=== PATIENT | male | born 1960 | race African-American/Black ===

== ENCOUNTER 2016-07-06 05:22 | Inpatient (IN) ==
[2016-07-06] MEDS ORDERED: ONDANSETRON 4 MG/2 ML VIAL IV PRN (05:38)
[2016-07-06] MEDS ORDERED: ASPIRIN CHEW 81 MG TABLET PO STA (05:38)
[2016-07-06] MEDS ORDERED: ASPIRIN 325 MG TABLET ONE (05:38)
[2016-07-06] MEDS ORDERED: TICAGRELOR 90 MG TABLET PO STA (05:41)
[2016-07-06] MEDS ORDERED: ENOXAPARIN 100 MG/ML SYRINGE SUBCUT STA (05:42)
[2016-07-06] MEDS ORDERED: TICAGRELOR 90 MG TABLET ONE (05:43)
[2016-07-06] MEDS ORDERED: ENOXAPARIN 100 MG/ML SYRINGE SUBCUT ONE (05:43)
[2016-07-06] MEDS ORDERED: METOPROLOL TARTRATE 5 MG/5 ML VIAL IV ONE (05:44)
[2016-07-06] MEDS: METOPROLOL TARTRATE 5 MG/5 ML VIAL IV SCH (05:46)
--- NOTE | 2016-07-06 05:46 | Emergency Department Note ---
Arrival - Arrival Chief Complaint: Chest Pain Stated Complaint: severe chest pain ED Nursing Triage Note: C/C substernal chest pain, non radiating, makes him short of breath and diaphoretic. Heaviness 8/10 pain. started yesterday 07/05 around 15:00 Mode of Arrival: Ambulatory - History of Present Illness HPI Narrative: This patient is a 55-year-old man with a history of tobacco use and a remote history of a bleeding peptic ulcer that was treated endoscopically and with acid suppression therapy who has not had issues of the ulcer since 2005. He presents to the ER with about 12 hours of worsening pressure-like substernal chest pain that he initially thought was indigestion. This is associated with diaphoresis and nausea and he take an aspirin last night around midnight but it worsened so he came in this morning. His initial EKG showed ST elevations in the anteroseptal leads with reciprocal changes in the inferior leads. The cath lab manager was activated and I discussed his EKG with Dr. Crocker who gave further recommendations regarding specific anticoagulation and the patient was treated with 180 mg of Brilinta by mouth as well as a 325mg aspirin and 100 mg of subcutaneous Lovenox. He had atrial fibrillation as well as on his EKG and is given 5 mg of IV metoprolol. Allergies/Adverse Reactions: Allergies Allergy/AdvReac Type Severity Reaction Status Date / Time No Known Allergies Allergy Unverified 07/06/16 05:29 Home Medications: Home Medications Medication Instructions Recorded Confirmed Type No Known Home Medications [No 07/06/16 07/06/16 History Known Home Medications] Review of System - Review of System Constitutional: Present: as per HPI Eyes: Present: as per HPI Head/Ears/Nose/Throat: Present: see HPI Respiratory: Present: as per HPI Cardiovascular: Present: as per HPI Gastrointestinal: Present: as per HPI Genitourinary male: Present: as per HPI Musculoskeletal: Present: as per HPI Skin: Present: as per HPI Neurological: Present: as per HPI Psychiatric: Present: as per HPI Endocrine: Present: as per HPI Hematological/Lymphatic: Present: as per HPI Allergic/Immunologic: Present: as per HPI Medical,Surgical,& Family Hx - Social History Smoking Status: Current every day smoker Frequency of Alcohol Use: None Type of Drug Use: None Exam Vital Signs: Vital Signs Temperature 97.3 F L 12/29/16 05:25 Pulse Rate 117 H 07/06/16 05:25 Respiratory Rate 18 07/06/16 05:25 Blood Pressure 137/91 07/06/16 05:25 O2 Sat by Pulse Oximetry 97 07/06/16 05:25 - General General appearance: alert, in no apparent distress - Head Head exam: Present: atraumatic, normocephalic - Eye Eye exam: Present: normal appearance, PERRL, EOMI. Absent: scleral icterus - ENT ENT exam: Present: normal exam - Neck Neck exam: Present: normal inspection, full ROM - Chest Chest inspection: Present: normal inspection, symmetric chest wall rise. Absent : tenderness - Respiratory Respiratory exam: Present: normal lung sounds bilaterally. Absent: accessory muscle use, prolonged expiratory phase - Cardiovascular Cardiovascular exam: Present: tachycardia, irregular rhythm. Absent: murmur - Abdominal Exam Abdominal exam: Present: soft, normal bowel sounds. Absent: distention, tenderness, guarding, rebound - Rectal Exam Rectal exam: Present: deferred - exam: Present: normal inspection - Extremities Exam Extremities exam: Present: normal inspection - Back Exam Back exam: Present: normal inspection, full ROM - Neurological Exam Neurological exam: Present: alert, oriented X3 - Psychiatric Psychiatric exam: Present: normal affect, normal mood - Skin Skin exam: Present: warm, dry Course Course Narrative: This patient was evaluated clinically in the cath lab manager was activated. I discussed his presentation with Dr. Crocker. He is prepared for the cath lab manager. Disposition Clinical Impression: Chest pain, ST elevation myocardial infarction (STEMI) Case discussed with: patient Disposition: Still a Patient Condition: Guarded Instructions: Coronary Artery Disease (ED) Time of Disposition: 05:49
[2016-07-06 05:51] LABS: Basophils # 0.1 10*3/uL (0.0-0.2); Basophils % 0.4 % (0.0-0.8); Eosinophils # 0.1 10*3/uL (0.0-0.87); Eosinophils % 0.7 % (0.00-10.9); Hematocrit 39.5 VOL% (42.0-52.0); Immature Granulocytes % 0.4 %; Immature Granulocytes Absolute 0.05 #; Lymphocytes # 3.3 10*3/uL (1.4-4.0); Lymphocytes % 23.4 % (21.2-54.2); Mean Corpuscular HGB Conc 35.4 GM/DL (32-36); Mean Corpuscular Hemoglobin 28 PG (27-34); Mean Corpuscular Volume 77.9 FL (87-102); Mean Platelet Volume 10.4 FL (9.6-12.0); Monocytes # 1.2 10*3/uL (0.11-0.8); Monocytes % 8.8 % (1.7-12.7); Neutrophils # 9.4 10*3/uL (1.4-7.4); Neutrophils % 66.3 % (38.7-73.9); Platelet Count 331 10*3/uL (130-400); Red Blood Count 5.07 10*6/uL (3.8-5.5); Red Cell Distribution Width 13.6 % (9.3-17.3); White Blood Count 14.1 10*3/uL (4.5-13.71)
[2016-07-06 06:00] LABS: INR 1.1; PT Patient Result 11.7 SECS
--- NOTE | 2016-07-06 06:09 | History and Physical Update ---
Sedation H&P Update - History and Physical H&P was reviewed, the patient examined and there: are no changes in the patients condition since last H&P was completed. - Dictation Physical: refer to H&P completed by admitting physician - Physical Exam Mental Status: alert and oriented Heart: regular rate and rhythm Lung: clear to auscultation Abdomen: within normal limits Vitals: within normal limits - Sedation Plan for Sedation: moderate Patient Consent: Procedure disscussed with patient and patinet has consented., Risks and benefits were discussed with patient,including infection,, bleeding, injury to surrounding structures, seizure, temporary nerve, Patient understands and accepts potential risks/benefits and agrees to, proceed. ASA Class: IV Airway Assessment: Class II: Soft palate, uvula, fauces visible
--- NOTE | 2016-07-06 06:10 | Cardiology History & Physical ---
History of Present Illness Chief complaint: Chest pain History of present illness: Mr. Cuba is a 55 year old male with stuttering substernal chest pain that felt like gas that started yesterday at 1500 hrs. been going on and off today it became constant he came to the emergency room was evaluated by Dr. Huntley to look found to have ST elevation in V3 through V6 with reciprocal ST depression. He was in sinus rhythm with atrial bigeminy. The Research Executive was activated and I was called. The patient received Lovenox and Brilinta and shortly after receiving his Lovenox his pain improved Home Medications Medication Instructions Recorded Confirmed Type No Known Home Medications [No 07/06/16 07/06/16 History Known Home Medications] Allergies Allergy/AdvReac Type Severity Reaction Status Date / Time No Known Allergies Allergy Unverified 07/06/16 05:29 Medical,Surgical,& Family Hx - Social History Smoking Status: Current every day smoker Frequency of Alcohol Use: None Type of Drug Use: None Cardiology Physical Exam - Constitutional Vitals: Vital Signs Temp Pulse Resp BP Pulse Ox 97.3 F L 117 H 18 137/91 97 07/06/16 05:25 07/06/16 05:25 07/06/16 05:25 07/06/16 05:25 07/06/16 05:25 Intake and Output 07/05/16 07/05/16 07/06/16 15:59 23:59 07:59 Other: Weight 98.883 kg Patient Weight 07/06/16 23:59 Weight 98.883 kg Result/EKG - Labs CBC & BMP: 07/06/16 05:46 Labs: Laboratory Results - last 24 hr 07/06/16 07/06/16 05:46 05:46 WBC 14.1 H RBC 5.07 Hgb 14.0 Hct 39.5 L MCV 77.9 L MCH 28 MCHC 35.4 RDW 13.6 Plt Count 331 MPV 10.4 Neut % (Auto) 66.3 Lymph % (Auto) 23.4 [place] % (Auto) 8.8 Eos % (Auto) 0.7 Baso % (Auto) 0.4 Neut # (Auto) 9.4 H Lymph # (Auto) 3.3 [place] # (Auto) 1.2 H Eos # (Auto) 0.1 Baso # (Auto) 0.1 Immature Gran % 0.4 Nucleated RBC % 0.0 Immature Gran # 0.05 Nucleated RBCs # 0.00 INR 1.1 PT Patient/Control Mix 11.7
[2016-07-06] MEDS ORDERED: HEPARIN/NACL 0.9% 2 UNITS/ML 500 ML IV ONE ×2 (06:19→07:03)
[2016-07-06 06:20] LABS: Albumin 3.8 G/DL (3.4-5.0); Bilirubin,Total 0.6 MG/DL (0.2-1.0); Calcium 8.7 MG/DL (8.5-10.1); Magnesium 1.9 MG/DL (1.8-2.4); Osmolality,Calculated 277.5 MOS/KG (273-304); Potassium 3.6 MMOL/L (3.5-5.1)
[2016-07-06 06:24] LABS: Troponin I Only 9.3 NG/ML (0.00-0.045)
[2016-07-06 06:50] LABS: Apearance,Urine CLEAR (Clear); Bilirubin,Urine Negative (Negative); Blood, Urine Negative (Negative); Glucose,Urine (UA) Negative (Negative); Hyaline Casts,Urine 3 /LPF (0-3); Ketones,Urine Negative (Negative); Mucus,Urine Occasional /LPF (Occasional); Nitrite,Urine Negative (Negative); Protein,Urine 30 MG/DL; RBC,Urine 2 /HPF (0-4); Urine Color Yellow (Yellow); Urine Urobilinogen < 2.0 EU/DL (0.2-1.0); WBC,Urine <1 /HPF (0-6)
[2016-07-06] MEDS ORDERED: ZALEPLON 5 MG CAPSULE PO PRN (06:51)
[2016-07-06] MEDS ORDERED: MORPHINE 2 MG/1 ML SYRINGE IV PRN (06:51)
[2016-07-06] MEDS ORDERED: NITROGLYCERIN SL 0.4 MG TABLET SL PRN (06:51)
[2016-07-06] MEDS ORDERED: fentaNYL 100 MCG/2 ML VIAL ONE (07:00)
[2016-07-06] MEDS ORDERED: LIDOCAINE 1% 20 ML VIAL ONE (07:00)
[2016-07-06] MEDS ORDERED: MIDAZOLAM 2 MG/2 ML VIAL ONE (07:00)
[2016-07-06] MEDS ORDERED: SODIUM CHLORIDE 0.45% 1,000 ML IV SCH (07:00)
--- NOTE | 2016-07-06 07:05 | Cardiac Catheterization ---
Date of Procedure:: 07/06/16 Pre-op Diagnosis: ST elevation myocardial infarction Post-op diagnosis: other (ST elevation myocardial infarction secondary to 100% thrombotic occlusion of the proximal LAD with WENDY 0 flow and ischemic cardiomyopathy, decompensated) Procedure: Procedures: 1. Left heart catheterization resting hemodynamics 2 left ventriculography 3 selective left and right coronary angiography 4 percutaneous coronary mention of the proximal and mid left anterior descending artery with a 3.5 x 28 mm Xience Alpine drug-eluting stent postdilated to 14 carissa with a 3.5 x 20 mm NC Quantum balloon (100% occluded vessel with WENDY 0 flow pre-PCI with 0% residual stented segment and WENDY II flow in the very distal LAD post PCI) After consent was taken from the patient. Taken to the catheterization lab for emergent left heart catheterization via the femoral artery. Time out was taken and recorded. 1% lidocaine was infiltrated in the skin and subcutaneous tissue overlying the right femoral artery. Modified Seldinger technique and an 18- gauge Cook needle was used for access to the right femoral artery. An 0.35 J- wire was advanced through the needle into the central aorta under fluoroscopy. A small skin was made and a 6 Tajik sheath was placed over the wire. The sheath was aspirated and flushed. A JR4 catheter was advanced over the wire into the central aorta. The right coronary was selectively engaged and single view of the right coronary artery were obtained. A EBU 3.5 guide was advanced over the wires in the left main coronary artery was selectively engaged. Multiple orthogonal views of the left system were obtained. The lathe setup operator reviewed the films. The patient had received 180 mg of Brilinta milligrams milligrams subcu of Lovenox in the emergency room. Only a very small nipple in the ostium of the LAD was seen but a 180 cm pro-water wire was advanced with significant amount of difficulty into the distal LAD. At this time a 2.5 x 12 mm Latham balloon was used to [place] and then balloon the long heavily diseased segment. WENDY II flow was restored to the vessel the very distal segments of the vessel had poor flow. Balloon was removed and a 3.5 x 28 mm Xience Alpine drug-eluting stent was deployed. There was excellent angiographic result of the very distal portion of the LAD continued to have poor flow. Patient's blood pressure was 106/58 was felt that he probably would not tolerate additional vasodilators given down the vessel it appears as though from shot shot the flow was improving. The wire was removed orthogonal views were obtained. At this time the EBU was exchanged over the wire the sheath was aspirated and flushed angled pigtail catheter was taken across the aortic valve any centimeter grams from the HOBBS projection 10 cc a second a total of 30 cc pullback measurements were performed. The sheath was aspirated and flushed and a right femoral and iliac angiography was performed. The access site was amenable for closure and the area was reprepped with ChloraPrep and draped with sterile towels. The Angio-Seal closure device was used in standard technique. There was no hematoma and distal pulses were good. Total IV conscious sedation to mill grams of Versed 25 mg of fentanyl Total x-ray exposure as per the x-ray log. Fluoroscopy time 6 minutes total diagnostic fluoroscopy dose 2190 mGy Total contrast used 212 cc of Visipaque FINDINGS: LV:110/10 LVEDP: 28 Ao: 106/80 EF: 20% with severe mid distal anterior apical and distal inferior hypokinesis LM: There is mild plaquing approximately 20% in the distal LM LAD: This is a very large very tortuous vessel at the beginning of the procedure there was thrombotic occlusion at the ostium with only a small nipple there it was wired once was wired this resolved and opened up to show a long mildly calcified 100% proximal to mid LAD occlusion. Once this was ballooned it was felt to be that it was long and complex. LCx: Very tortuous vessels nondominant with no high-grade stenosis. RCA: This is a very tortuous vessel is very large and free of any significant disease there is some mild disease the very distal PDA. Due to hampton to open the culprit vessel only a single view was obtained. It was felt to be adequate. RFA/LUIS ARMANDO: There is minimal disease in the right femoral iliac arteries. Assessment: 1. ST elevation myocardial infarction secondary to 100% thrombotic occlusion of the proximal and mid left anterior descending artery with ruptured plaque and long high-grade epicardial stenosis 2. Ischemic cardiomyopathy EF of 20% with regional wall motion are as described above and LVEDP of 28 PLAN: 1. Monitoring in the ICU 2. Dual antiplatelet therapy for at least 1 year 3. Cardiac rehab consultation 4. Heart failure treatment 5 beta trinidad RUDOLPH inhibitor dual antiplatelet therapy 6. Reassess with transthoracic echo consider defibrillator in appropriate time 7. Echocardiogram today to rule out aortic insufficiency Implants: 3.5 x 28 mm Xience drug-eluting Anesthesia: moderate conscious sedation Surgeon / Physician: Dasia Monteiro Hat Finishing Materials Preparer: none Estimated blood loss: none Specimens: none sent Condition: stable Disposition: ICU/CCU - Discharge Disposition: Still a Patient - Medications / Follow-up
--- NOTE | 2016-07-06 07:28 | XRay Report ---
XR chest 1V portable Indication: SOB Comparison: None Technique: Single frontal view of the chest Findings: Mild/moderate cardiomegaly. Mild hazy opacification of the bilateral lower lungs suggesting pulmonary edema or pneumonia and probable small layering pleural fluid. Constellation of findings suggests CHF. Osseous and surrounding soft tissue structures demonstrate no acute abnormality. IMPRESSION: As above. PROCEDURE INTERPRETED AT [facility] DEPARTMENT OF RADIOLOGY Final Report Signed by: Dr Ronald Choudhury
[2016-07-06] MEDS ORDERED: AMIODARONE INJ 150 MG in DEXTROSE 5% 100 ML IV ONE (08:00)
[2016-07-06] MEDS ORDERED: AMIODARONE INJ 450 MG in DEXTROSE 5% 241 ML IV SCH (08:00)
[2016-07-06] MEDS ORDERED: ONDANSETRON 4 MG/2 ML VIAL ONE (08:30)
--- NOTE | 2016-07-06 08:40 | EKG Report ---
Stationary ECG Study [facility] ER Test Date: 07/06/2016 5:30:39 AM Pat Name: AUDREY RICKS Department: Room: C001 Gender: M Fire Chief: : 1960 Requested by: Audi Metcalf Order Number: [id number] Reading MD: JOANN FRAZIER Intervals [place] Rate: 92 P: 999 [place]: 0 QRS: 7 QRSD: 100 T: 84 QT: 316 QTc: 366 Interpretive Statements ATRIAL FIBRILLATION@92BPM ANTEROSEPTAL INFARCT, POSSIBLY ACUTE INFERIOLATERAL ST DEPRESSION SUGGEST ISCHEMIA, POSSIBLY RECIPROCAL CHANGE TO ANTERIOR INJURY Electronically Signed On 07-06-16 14:39:49 INSURANCE CLAIMS CLERK by JOANN FRAZIER [email or web address]
--- NOTE | 2016-07-06 08:40 | EKG Report ---
Stationary ECG Study [facility] Test Date: 07/06/2016 7:38:46 AM Pat Name: AUDREY RICKS Department: Room: C001 Gender: M Weaver Hand Loom: : 1960 Requested by: Deb Love Order Number: [id number] Reading MD: JOANN FRAZIER Intervals [place] Rate: 126 P: 999 [place]: 0 QRS: 68 QRSD: 103 T: 122 QT: 388 QTc: 463 Interpretive Statements ATRIAL FIBRILLATION WITH RAPID VENTRICULAR RESPONSE@126BPM ANTEROSEPTAL INFARCT, PROBABLY RECENT Electronically Signed On 07-06-16 14:45:05 BINDING PRINTER by JOANN FRAZIER [email or web address]
[2016-07-06] MEDS: PANTOPRAZOLE 40 MG TABLET PO SCH (11:08)
[2016-07-06] MEDS: CARVEDILOL 3.125 MG TABLET PO SCH ×2 (11:08→21:00)
[2016-07-06] MEDS: LISINOPRIL 2.5 MG TABLET PO SCH (11:08)
[2016-07-06] MEDS ORDERED: LORazepam 1 MG TABLET PO PRN (12:46)
[2016-07-06] MEDS: ASPIRIN EC 81 MG TABLET PO SCH (12:49)
[2016-07-06] MEDS: TICAGRELOR 90 MG TABLET PO SCH ×2 (12:50→20:59)
[2016-07-06] MEDS: NICOTINE 21 MG/24 HR PATCH TRANSDERM SCH (12:57)
--- NOTE | 2016-07-06 13:08 | ECHO Report ---
Kareem Cuba Exam Date: 07/06/2016 08:42 Referring Physician: Technologist: Nai Monsalve RDCS Age: 55 Ht (in): Wt (lb): Gender: M Exam Location: [facility] Echo Indications: Chest pain, unspecified, ST elevation (STEMI) myocardial infarction of unspecified site, Abnormal electrocardiogram [ECG] [EKG], Ischemic cardiomyopathy, Nicotine dependence, unspecified, uncomplicated, post Cath with stents BP: / HR: Rhythm: Sinus Technical Quality: good IMPRESSIONS Left ventricular ejection fraction is estimated at 30 %. There is mid to distal anterior septal and apical hypokinesis. Diastolic parameters are most consistent with grade 2 diastolic dysfunction with pseudonormalization Tricuspid regurgitation velocities suggest a RVSP of 37 mmHg plus the right atrial pressure. MEASUREMENTS (Male / Female) Normal Values 2D ECHO LV Diastolic Diameter PLAX 4.8 cm 4.2 - 5.9 / 3.9 - 5.3 cm LV Systolic Diameter PLAX 3.9 cm LV Fractional Shortening PLAX 18.3 % IVS Diastolic Thickness 1.4 cm 0.6 - 1.0 / 0.6 - 0.9 cm LVPW Diastolic Thickness 1.4 cm 0.6 - 1.0 / 0.6 - 0.9 cm RV Internal Dim ED PLAX 4.1 cm Aortic Root Diameter 3.7 cm LA Systolic Diameter LX 4.9 cm 3.0 - 4.0 / 2.7 - 3.8 cm DOPPLER TR Peak Velocity 304.0 cm/s TR Peak Gradient 37.0 mmHg FINDINGS Left Ventricle Normal left ventricular cavity size. Mild left ventricular hypertrophy. Left ventricular ejection fraction is estimated at 30 %. There is mid to distal anterior septal and apical hypokinesis. There is a single view it looks like there potentially is a thrombus at the apex but this is not seen in other views I think this is shadowing. Diastolic parameters are most consistent with grade 2 diastolic dysfunction with pseudonormalization Right Ventricle The right ventricle is normal in size and function. Right Atrium The right atrium is mildly enlarged. Left Atrium Moderately increased left atrial size. Mitral Valve Morphologically normal mitral valve. Trace to mild mitral valve regurgitation. Aortic Valve Morphologically normal aortic valve without significant sclerosis or stenosis. There is no aortic regurgitation. Tricuspid Valve Morphologically normal tricuspid valve. Trace to mild tricuspid valve regurgitation. Tricuspid regurgitation velocities suggest a RVSP of 37 mmHg plus the right atrial pressure. Pulmonic Valve Morphologically normal pulmonic valve. Trace pulmonary valve regurgitation. Pericardium Normal pericardium without effusion. Aorta Normal ascending aorta dimension. Dasia Monteiro (Electronically Signed) Final Date: 06 July 2016 13:07
[2016-07-06] MEDS: AMIODARONE INJ 450 MG in DEXTROSE 5% 241 ML IV SCH (14:35)
[2016-07-06] MEDS: ATORVASTATIN 40 MG TABLET PO SCH (21:01)
[2016-07-07 04:07] LABS: Basophils % 0.2 % (0.0-0.8); Eosinophils % 0.1 % (0.00-10.9); Hematocrit 35.1 VOL% (42.0-52.0); Hemoglobin 12.2 GM/DL (14.0-18.0); Immature Granulocytes % 0.3 %; Immature Granulocytes Absolute 0.04 #; Lymphocytes # 2.2 10*3/uL (1.4-4.0); Lymphocytes % 15.6 % (21.2-54.2); Mean Corpuscular HGB Conc 34.8 GM/DL (32-36); Mean Corpuscular Hemoglobin 27 PG (27-34); Mean Platelet Volume 10.7 FL (9.6-12.0); Monocytes # 1.5 10*3/uL (0.11-0.8); Monocytes % 10.4 % (1.7-12.7); Neutrophils # 10.5 10*3/uL (1.4-7.4); Neutrophils % 73.4 % (38.7-73.9); Platelet Count 297 10*3/uL (130-400); Red Blood Count 4.56 10*6/uL (3.8-5.5); Red Cell Distribution Width 13.4 % (9.3-17.3); White Blood Count 14.3 10*3/uL (4.5-13.71)
[2016-07-07 04:38] LABS: Calcium 8.1 MG/DL (8.5-10.1); Osmolality,Calculated 284.8 MOS/KG (273-304); Risk Ratio 4.34; VLDL CHOLESTEROL 21.6 MG/DL
--- NOTE | 2016-07-07 07:08 | EKG Report ---
Stationary ECG Study [facility] Test Date: 07/07/2016 7:07:29 AM Pat Name: AUDREY RICKS Department: Room: 126 Gender: M Auto Adjudication Specialist: GAYLE : 1960 Requested by: Deb Love Order Number: [id number] Reading MD: CLAUDIA HOLLOWAY Intervals [place] Rate: 99 P: 999 [place]: 0 QRS: 20 QRSD: 94 T: 11 QT: 371 QTc: 427 Interpretive Statements ATRIAL FIBRILLATION ANTEROSEPTAL MYOCARDIAL INFARCTION, PROBABLY RECENT ACUTE PR INTERPRETATION BASED ON A DEFAULT AGE OF 40 YEARS Electronically Signed On 07-07-16 13:16:57 RAILWAY STATION MANAGER by CLAUDIA HOLLOWAY [email or web address]
[2016-07-07] MEDS: TICAGRELOR 90 MG TABLET PO SCH ×2 (09:06→21:47)
[2016-07-07] MEDS: LISINOPRIL 2.5 MG TABLET PO SCH (09:06)
[2016-07-07] MEDS: CARVEDILOL 3.125 MG TABLET PO SCH ×2 (09:07→21:47)
[2016-07-07] MEDS: ASPIRIN EC 81 MG TABLET PO SCH (09:07)
[2016-07-07] MEDS: PANTOPRAZOLE 40 MG TABLET PO SCH (09:07)
[2016-07-07] MEDS: AMIODARONE INJ 450 MG in DEXTROSE 5% 241 ML IV SCH (09:09)
[2016-07-07] MEDS: NICOTINE 21 MG/24 HR PATCH TRANSDERM SCH (09:12)
--- NOTE | 2016-07-07 13:28 | Cardiology Progress Note ---
Reinaldo Au Vanessa RN, am scribing for, and in the presence of, Dasia Monteiro DO 13 :28. Assessment and Plan - Time spent with patient Time spent with patient: Less than 30 minutes (1) Status post insertion of drug eluting coronary artery stent Status: Acute Assessment and plan: status post percutaneous coronary intervention of the proximal and mid left anterior descending artery with a 3.5 x 28 mm Xience Alpine drug-eluting stent postdilated to 14 carissa with a 3.5 x 20 mm NC Quantum balloon (100% occluded vessel with WENDY 0 flow pre-PCI with 0% residual stented segment and WENDY II flow in the very distal LAD post PCI) Current Visit: Yes (2) ST elevation myocardial infarction (STEMI) Status: Acute Assessment and plan: emergent cardiac catheterization with percutaneous coronary intervention of left anterior descending coronary artery. Current Visit: Yes (3) Ischemic cardiomyopathy Status: Acute Assessment and plan: Post acute anterior WI 07/06. Per echo, left ventricular ejection fraction estimated at 30% with mid to distal anterior septal and apical hypokinesis. Grade II diastolic dysfunction with pseudonormalization. Current Visit: Yes (4) Atrial fibrillation Status: Acute Current Visit: Yes (5) Tobacco abuse Status: Chronic Current Visit: Yes Cardiology - PN: Subj Interval history: Patient under close observation in CCU this morning status post acute anterior myocardial infarction 07/06 with emergent left heart catheterization and percutaneous coronary intervention of the proximal to mid left anterior descending coronary with drug eluting stent. Denies further chest pain, dyspnea , palpitation, presyncope, or other cardiac complaint. RFA cath site dressing removed, groin without hematoma or bruit. Site is sore to touch. Dorsalis pedis and posterior tibial pulses are 2+ and palpable bilaterally. IV amiodarone infusion at 0.5 mg/min. Atrial fib per tele monitor with pulse rate in 80's. No episodes of RVR or other dysrhythmia. Troponin 108 this morning. Creatinine improved from yesterday and is 1.2. Electrolytes within normal limits. HH, platelet counts normal. O2 sats low to mid 90's with 4L/NC in use. Saw and examined with the stating the patient looks remarkably well. We will transfer to telemetry. Encouraged him to get up and get around. His echo ejection fraction was a little better than his ventriculogram hopefully this is a good sign. He seem a dynamically been good and he has remained in sinus rhythm will convert IV to oral amiodarone. Hopefully we can stop this before discharge. Exam (Progress Note) - Constitutional Vitals: Period Temp Pulse Resp BP Sys/Valenzuela Pulse Ox Last 24 Hr 98.6 F-98.9 F 78-99 14-35 95-141/66-92 91-100 General appearance: normal weight, no acute distress - Head Head exam: Present: normal inspection, atraumatic. Absent: contusion, hematoma - Eye Eye exam: Present: EOMI. Absent: periorbital swelling Pupils: Present: SOHEILA. Absent: constricted, dilated - ENT ENT exam: Present: normal exam - Neck Neck exam: Absent: tenderness - Respiratory Respiratory exam: Present: clear to auscultation bilaterally. Absent: chest wall tenderness, rales, rhonchi, stridor, wheezes - Cardiovascular Cardiovascular exam: Present: irregular rhythm - GI/Abdominal GI/Abdominal exam: Present: normal bowel sounds, soft. Absent: ascites, distended, firm, tenderness - Extremities Exam Extremities exam: Absent: calf tenderness, edema - Neurological Exam Neurological exam: Present: alert, oriented X3 - Psychiatric Psychiatric exam: Present: normal affect. Absent: agitated, anxious - Skin Skin exam: Present: warm, dry. Absent: cyanosis, diaphoretic, petechiae, rash Result/EKG - Labs CBC & BMP: 07/07/16 03:36 07/07/16 03:36 Lab Results: I have reviewed the past 24 hour labs Labs: Laboratory Results - last 24 hr 07/06/16 07/06/16 07/07/16 15:02 23:14 03:36 WBC 14.3 H RBC 4.56 Hgb 12.2 L Hct 35.1 L MCV 77.0 L MCH 27 MCHC 34.8 RDW 13.4 Plt Count 297 MPV 10.7 Neut % (Auto) 73.4 Lymph % (Auto) 15.6 L [place] % (Auto) 10.4 Eos % (Auto) 0.1 Baso % (Auto) 0.2 Neut # (Auto) 10.5 H Lymph # (Auto) 2.2 [place] # (Auto) 1.5 H Eos # (Auto) 0.0 Baso # (Auto) 0.0 Immature Gran % 0.3 Nucleated RBC % 0.0 Immature Gran # 0.04 Nucleated RBCs # 0.00 Sodium Potassium Chloride Carbon Dioxide Anion Gap BUN Creatinine GFR Calculation BUN/Creatinine Ratio Glucose Calculated Osmolality Calcium ALT Troponin I 85.400 H D 108.000 H D Triglycerides Cholesterol LDL Cholesterol VLDL Cholesterol HDL Cholesterol Heart Disease Risk Ratio 07/07/16 03:36 WBC RBC Hgb Hct MCV MCH MCHC RDW Plt Count MPV Neut % (Auto) Lymph % (Auto) [place] % (Auto) Eos % (Auto) Baso % (Auto) Neut # (Auto) Lymph # (Auto) [place] # (Auto) Eos # (Auto) Baso # (Auto) Immature Gran % Nucleated RBC % Immature Gran # Nucleated RBCs # Sodium 144 Potassium 4.0 Chloride 109 H Carbon Dioxide 25 Anion Gap 14.0 BUN 9 Creatinine 1.20 GFR Calculation 102 BUN/Creatinine Ratio 7.00 Glucose 102 Calculated Osmolality 284.8 Calcium 8.1 L ALT 57 Troponin I Triglycerides 108 Cholesterol 152 LDL Cholesterol 109.0 VLDL Cholesterol 21.6 HDL Cholesterol 35 L Heart Disease Risk Ratio 4.34 - EKG EKG results: interpreted by me EKG shows: atrial fibrillation (controlled pulse rate 80's) Quality Measures - VTE Contraindication to Pharmacological VTE Prophylaxis: Already on Theraputic Agent , No Prophylaxis Needed Specialty Discharge - Follow Up or Referrals - Discharge Medications No Action No Known Home Medications [No Known Home Medications] IThania Shea, , personally performed the services described in this documentation, ascribed by Lulú Najera RN in my presence, and it is both accurate and complete 328 .
--- NOTE | 2016-07-07 17:16 | Discharge Summary ---
Hospital Course - Hospital Course Hospital Course: History Mimi, 55-year-old male, presented to the Emergency Department of [facility] July 06, [address] Monteiro took the patient emergently to the cardiac catheterization lab where LHC revealed CAD. See report below: Pre-op Diagnosis: ST elevation myocardial infarction Post-op diagnosis: other (ST elevation myocardial infarction secondary to 100% thrombotic occlusion of the proximal LAD with WENDY 0 flow and ischemic cardiomyopathy, decompensated) Procedure: Procedures: 1. Left heart catheterization resting hemodynamics 2. left ventriculography 3. selective left and right coronary angiography 4. percutaneous coronary mention of the proximal and mid left anterior descending artery with a 3.5 x 28 mm Xience Alpine drug-eluting stent postdilated to 14 carissa with a 3.5 x 20 mm NC Quantum balloon (100% occluded vessel with WENDY 0 flow pre-PCI with 0% residual stented segment and WENDY II flow in the very distal LAD post PCI). Echocardiogram revealed EF 30%. Mid to distal anterior septal and apical hypokinesis, grade 2 diastolic dysfunction with pseudonormalization. RVSP of 37mmHg + RAP. He tolerated LHC well and without complication and was returned to the CCU in stable condition. On admission, patient experience atrial fibrillation and his IV amiodarone was transitioned to oral amiodarone. need to complete discharge meds - Time spent with patient Time with patient DS: Less than 30 minutes Diagnosis - Discharge Diagnosis (1) Hypertension Status: Chronic (2) Dyslipidemia Status: Chronic (3) ST elevation myocardial infarction (STEMI) Status: Resolved (4) Status post insertion of drug eluting coronary artery stent Status: Chronic (5) Atrial fibrillation Status: Acute (6) Ischemic cardiomyopathy Status: Acute (7) Tobacco abuse Status: Chronic Specialty Discharge - Follow Up or Referrals - Discharge Medications No Action No Known Home Medications [No Known Home Medications] Discharge Plan - Discharge Data Disposition: Disch To Home/Self Care Condition at Discharge: Stable Discharge Diet: heart healthy Activity: other (post-cath expectations) Hygiene: other (post-cath expectations) Weight Bearing at Discharge: other (post-cath expectations) Driving: other (post-cath expectations) Contact your physician if you experience:: fever over 101, Difficulty voiding, Redness or swelling, Nausea/Vomiting, Shortness of breath, Bleeding, pain uncontrolled by pain medications - Discharge Medications No Action No Known Home Medications [No Known Home Medications] - Follow Up or Referral Follow Up: Dasia Monteiro DO [Physician] - 1 Week (1-2 weeks. Labs at the visit include: BMP, Mg, CBC. EKG) - Forms/Instructions Instructions: Myocardial Infarction (GEN), Coronary Artery Disease (ED), Left Heart Catheterization (DC), Heart Healthy Diet (GEN), Cigarette Smoking and Your Health (GEN) Exam - Constitutional Vitals: Period Temp Pulse Resp BP Sys/Valenzuela Pulse Ox Last 24 Hr 98.1 F-99.5 F 82-99 14-30 95-141/64-92 64-99 Exam: General: Appears well with no apparent distress. Pleasant and cooperative. Appears comfortable. HEENT: PERRL, normocephalic, atraumatic. Mucous membranes moist. No jaundice noted. Conjunctiva moist and clear, sclerae anicteric Neck: No JVD/HJR, no thyromegaly or lymphadenopathy noted. No carotid bruit appreciated Cardiac: Regular rate and rhythm. No murmur rub or gallop. Lungs: Clear to auscultation without accessory muscle use to assist the respiratory pattern. No oxygen in use. Abdomen: Soft, bowel sounds normoactive. Nontender and nondistended. No abdominal bruit or thrill noted. No masses noted. Musculoskeletal: No fluid collection. Decreased range of motion is noted. Extremities: Right groin free of hematoma or bruit. No clubbing, cyanosis noted. No edema noted. Upper extremity pulses 2+. Lower extremity pulses 2+. Capillary refill less than 3 seconds. Skin: No unusual lesions or rashes. No skin breakdown appreciated. Neuro: Awake, alert and oriented 3. Moves all extremities well without hemiparesis or paralysis. No essential tremor is appreciated. Discharge Results Procedures and tests throughout hospitalization: Pending Orders 07/06/16 10:30 MRSA Surveillence, Inf Control Routine Labs on day of discharge: Labs from last 24 hours 07/07/16 07/07/16 07/06/16 03:36 03:36 23:14 WBC 14.3 H RBC 4.56 Hgb 12.2 L Hct 35.1 L MCV 77.0 L MCH 27 MCHC 34.8 RDW 13.4 Plt Count 297 MPV 10.7 Neut % (Auto) 73.4 Lymph % (Auto) 15.6 L Douglas % (Auto) 10.4 Eos % (Auto) 0.1 Baso % (Auto) 0.2 Neut # (Auto) 10.5 H Lymph # (Auto) 2.2 Douglas # (Auto) 1.5 H Eos # (Auto) 0.0 Baso # (Auto) 0.0 Immature Gran % 0.3 Nucleated RBC % 0.0 Immature Gran # 0.04 Nucleated RBCs # 0.00 Sodium 144 Potassium 4.0 Chloride 109 H Carbon Dioxide 25 Anion Gap 14.0 BUN 9 Creatinine 1.20 GFR Calculation 102 BUN/Creatinine Ratio 7.00 Glucose 102 Calculated Osmolality 284.8 Calcium 8.1 L ALT 57 Troponin I 108.000 H D Triglycerides 108 Cholesterol 152 LDL Cholesterol 109.0 VLDL Cholesterol 21.6 HDL Cholesterol 35 L Heart Disease Risk Ratio 4.34 Preliminary micro results at discharge 07/06/16 10:30 MRSA Surveillance Culture - Preliminary Nares No MRSA isolated. - Imaging and Cardiology Cardiology Procedure: report reviewed by Procedure: Chest x-ray: report reviewed by DS: Provider Date of admission: 07/06/16 10:21 Primary care physician: Migel Rossi MD Attending physician on admission: Dasia Monteiro DO Discharging clinician: Cass Gavin NP
[2016-07-07] MEDS: AMIODARONE 200 MG TABLET PO SCH (21:47)
[2016-07-07] MEDS: ATORVASTATIN 40 MG TABLET PO SCH (21:47)
[2016-07-08 03:31] LABS: Calcium 8.3 MG/DL (8.5-10.1); Magnesium 2.1 MG/DL (1.8-2.4); Osmolality,Calculated 286.8 MOS/KG (273-304); Potassium 3.8 MMOL/L (3.5-5.1); Thyroid Stimulating Hormone 3.53 uIU/ml (0.358-3.74)
--- NOTE | 2016-07-08 08:21 | EKG Report ---
Stationary ECG Study [facility] Test Date: 07/08/2016 8:20:03 AM Pat Name: AUDREY RICKS Department: Room: 269 Gender: M Laundry Machine Operator: DANIA : 1960 Requested by: Deb Love Order Number: [id number] Reading MD: TAMMI ROSAS Intervals [place] Rate: 86 P: 62 NE: 144 QRS: 100 QRSD: 102 T: 69 QT: 399 QTc: 443 Interpretive Statements SINUS RHYTHM WITH FREQUENT SUPRAVENTRICULAR PREMATURE COMPLEXES POSSIBLE LEFT ATRIAL ABNORMALITY RIGHT AXIS DEVIATION ANTEROSEPTAL MYOCARDIAL INFARCTION IN EVOLUTION, PROBABLY RECENT Electronically Signed On 07-09-16 11:15:14 CYTOLOGIST by TAMMI ROSAS [email or web address]
[2016-07-08] MEDS: ASPIRIN EC 81 MG TABLET PO SCH (09:24)
[2016-07-08] MEDS: LISINOPRIL 2.5 MG TABLET PO SCH (09:24)
[2016-07-08] MEDS: SPIRONOLACTONE 25 MG TABLET PO SCH (09:24)
[2016-07-08] MEDS: PANTOPRAZOLE 40 MG TABLET PO SCH (09:25)
[2016-07-08] MEDS: NICOTINE 21 MG/24 HR PATCH TRANSDERM SCH (09:25)
[2016-07-08] MEDS: FUROSEMIDE 40 MG TABLET PO SCH (09:25)
[2016-07-08] MEDS: AMIODARONE 200 MG TABLET PO SCH ×2 (09:25→21:40)
[2016-07-08] MEDS: CARVEDILOL 3.125 MG TABLET PO SCH ×2 (09:25→21:40)
[2016-07-08] MEDS: TICAGRELOR 90 MG TABLET PO SCH ×2 (09:25→21:40)
--- NOTE | 2016-07-08 10:42 | Cardiology Progress Note ---
Assessment and Plan (1) Status post insertion of drug eluting coronary artery stent Status: Chronic Assessment and plan: status post percutaneous coronary intervention of the proximal and mid left anterior descending artery with a 3.5 x 28 mm Xience Alpine drug-eluting stent postdilated to 14 carissa with a 3.5 x 20 mm NC Quantum balloon (100% occluded vessel with WENDY 0 flow pre-PCI with 0% residual stented segment and WENDY II flow in the very distal LAD post PCI). No post OK complication at this point. Will observe for another 24 hours if it looks this good tomorrow anticipate discharge. Current Visit: Yes (2) ST elevation myocardial infarction (STEMI) Status: Resolved Assessment and plan: emergent cardiac catheterization with percutaneous coronary intervention of left anterior descending coronary artery. Current Visit: Yes (3) Ischemic cardiomyopathy Status: Acute Assessment and plan: Post acute anterior OK 07/06. Per echo, left ventricular ejection fraction estimated at 30% with mid to distal anterior septal and apical hypokinesis. Grade II diastolic dysfunction with pseudonormalization. Current Visit: Yes (4) Atrial fibrillation Status: Acute Current Visit: Yes Qualifiers: Atrial fibrillation type: paroxysmal Qualified Code(s): I48.0 - Paroxysmal atrial fibrillation (5) Tobacco abuse Status: Chronic Current Visit: Yes Cardiology - PN: Subj Interval history: The patient continues to improve. He has a few PACs and PVCs but no more atrial fibrillation. He is lying completely flat in the bed and is asymptomatic when I saw him he has not had additional chest pain he has been up and walking he denies lower extremity any orthopnea Exam (Progress Note) - Constitutional Vitals: Period Temp Pulse Resp BP Sys/Valenzuela Pulse Ox Last 24 Hr 97.3 F-100.0 F 78-90 16-21 101-136/56-91 93-98 General appearance: normal weight - Head Head exam: Present: normal inspection - Eye Eye exam: Present: EOMI Pupils: Present: SOHEILA - ENT ENT exam: Present: normal exam - Neck Neck exam: Present: normal inspection - Respiratory Respiratory exam: Present: clear to auscultation bilaterally - Cardiovascular Cardiovascular exam: Present: regular rate and rhythm (No gallop rub or murmur) - GI/Abdominal GI/Abdominal exam: Present: normal bowel sounds - Extremities Exam Extremities exam: Present: normal inspection - Back Exam Back exam: Present: normal inspection - Neurological Exam Neurological exam: Present: alert, oriented X3 - Psychiatric Psychiatric exam: Present: normal affect, normal mood - Skin Skin exam: Present: normal color, warm, dry Result/EKG - Labs CBC & BMP: 07/07/16 03:36 07/08/16 01:38 Labs: Laboratory Results - last 24 hr 07/07/16 07/08/16 17:36 01:38 Sodium 144 Potassium 3.8 Chloride 108 H Carbon Dioxide 23 Anion Gap 16.8 H BUN 17 Creatinine 1.40 H GFR Calculation 84 BUN/Creatinine Ratio 12.00 Glucose 84 Calculated Osmolality 286.8 Calcium 8.3 L Magnesium 2.1 Free T4 1.21 TSH 3rd Generation 3.530 Quality Measures - VTE Contraindication to Pharmacological VTE Prophylaxis: Already on Theraputic Agent , No Prophylaxis Needed Specialty Discharge - Follow Up or Referrals Follow up with: Dasia Monteiro DO [Physician] - 1 Week (1-2 weeks. Labs at the visit include: BMP, Mg, CBC. EKG) - Discharge Medications No Action No Known Home Medications [No Known Home Medications]
[2016-07-08] MEDS: ATORVASTATIN 40 MG TABLET PO SCH (21:40)
[2016-07-09 02:56] LABS: Basophils % 0.2 % (0.0-0.8); Eosinophils # 0.1 10*3/uL (0.0-0.87); Eosinophils % 0.7 % (0.00-10.9); Hematocrit 35.3 VOL% (42.0-52.0); Hemoglobin 12.3 GM/DL (14.0-18.0); Immature Granulocytes % 0.4 %; Immature Granulocytes Absolute 0.06 #; Lymphocytes % 13.9 % (21.2-54.2); Mean Corpuscular HGB Conc 34.8 GM/DL (32-36); Mean Corpuscular Hemoglobin 27 PG (27-34); Mean Corpuscular Volume 77.6 FL (87-102); Mean Platelet Volume 11.3 FL (9.6-12.0); Monocytes # 1.8 10*3/uL (0.11-0.8); Monocytes % 12.7 % (1.7-12.7); Neutrophils # 10.5 10*3/uL (1.4-7.4); Neutrophils % 72.1 % (38.7-73.9); Platelet Count 285 10*3/uL (130-400); Red Blood Count 4.55 10*6/uL (3.8-5.5); Red Cell Distribution Width 13.4 % (9.3-17.3); White Blood Count 14.5 10*3/uL (4.5-13.71)
[2016-07-09 03:22] LABS: Calcium 8.9 MG/DL (8.5-10.1); Osmolality,Calculated 285.1 MOS/KG (273-304); Potassium 3.7 MMOL/L (3.5-5.1)
[2016-07-09] MEDS: METOPROLOL TARTRATE 5 MG/5 ML VIAL IV SCH ×2 (07:18→07:19)
[2016-07-09 07:53] VITALS: BP 92/53
--- NOTE | 2016-07-09 08:36 | Discharge Summary ---
Hospital Course - Hospital Course Hospital Course: Patient was admitted to the emergency room with anterior ST elevation myocardial infarction. He had had chest discomfort for approximately 14 hours that have been stuttering but had a 62 minute first medical contact to balloon time at our facility. He was taken for direct PCI from the emergency room. He received a 3.5 x 28 mm Xience Alpine drug-eluting stent postdilated to 14 carissa with a 3.5 x 20 mm NC Quantum balloon (100% occluded vessel with WENDY 0 flow pre -PCI with 0% residual stented segment and WENDY II flow in the very distal LAD post PCI). He was found to have a significant cardiomyopathy with anterior anteroapical and distal inferior hypokinesis ejection fraction approximately 20% . He had a significant amount of reperfusion ectopy but remained stable after PCI. Immediately post PCI he developed atrial fibrillation with rapid ventricular response and was loaded with intravenous amiodarone and converted to oral amiodarone and remained in sinus rhythm sinus bradycardia at the time of discharge. He had no identifiable mechanical compromise or complication at the time of discharge he had no significant ectopy once his atrial fibrillation resolved. Had occasional PACs on telemetry was up and walking in the phan on post procedure day 4. His vital signs are stable he was tolerating his medications. His blood pressure was in the low 100s or upper 90s and he was asymptomatic. He was instructed on smoking cessation education cardiac rehab and seen. It was emphasized to him the importance of taking his dual antiplatelet therapy at discharge including getting them filled today. The patient will follow up with me in 1 week is instructed to stay off work until that time. - Time spent with patient Time with patient DS: Greater than 30 minutes (Documentation, education, orders and planning) Diagnosis - Discharge Diagnosis (1) Status post insertion of drug eluting coronary artery stent Status: Acute (2) ST elevation myocardial infarction (STEMI) Status: Acute (3) Ischemic cardiomyopathy Status: Acute (4) Atrial fibrillation Status: Acute (5) Tobacco abuse Status: Chronic (6) Dyslipidemia Status: Chronic Specialty Discharge - Follow Up or Referrals Follow up with: Dasia Monteiro DO [Physician] - 1 Week (1 weeks. Labs at the visit include: BMP , Mg, CBC. EKG) - Discharge Medications New Aspirin EC Tab 81 mg PO DAILY #30 tablet Carvedilol [Coreg] 3.125 mg PO BID #60 tablet Furosemide Tab [Lasix Tab] 40 mg PO DAILY #30 tablet Nitroglycerin Sl Tab [Nitrostat] 0.4 mg SL Q5M PRN #25 tablet PRN Reason: Chest Pain Pantoprazole Tab [Protonix Tab] 40 mg PO DAILY #30 tablet Spironolactone [Aldactone] 25 mg PO DAILY #30 tablet Ticagrelor [Brilinta] 90 mg PO BID #60 tablet Amiodarone Tab [Cordarone Tab] 200 mg PO DAILY #30 tablet Lisinopril [Prinivil] 2.5 mg PO DAILY #30 tablet Discharge Plan - Discharge Data Disposition: Disch To Home/Self Care Condition at Discharge: Stable Discharge Diet: heart healthy Activity: no lifting (nothing greater than 5 pounds for next 5 days. Off work until sees me in clinic) Weight Bearing at Discharge: full weight bearing Driving: no restrictions Contact your physician if you experience:: fever over 101, Nausea/Vomiting, Shortness of breath, Bleeding - Discharge Medications No Action No Known Home Medications [No Known Home Medications] - Follow Up or Referral Follow Up: Dasia Monteiro DO [Physician] - 1 Week (1-2 weeks. Labs at the visit include: BMP, Mg, CBC. EKG) - Forms/Instructions Instructions: Myocardial Infarction (GEN), Coronary Artery Disease (ED), Left Heart Catheterization (DC), Heart Healthy Diet (GEN), Cigarette Smoking and Your Health (GEN) Exam - Constitutional Vitals: Period Temp Pulse Resp BP Sys/Valenzuela Pulse Ox Last 24 Hr 96.9 F-99.6 F 63-84 16-20 92-131/53-75 91-95 General appearance: normal weight - Head Head exam: Present: normal inspection - Eye Eye exam: Present: EOMI Pupils: Present: SOHEILA - ENT ENT exam: Present: normal exam - Respiratory Respiratory exam: Present: clear to auscultation bilaterally - Cardiovascular Cardiovascular exam: Present: regular rate and rhythm (No rubs murmurs gallops or clicks) - GI/Abdominal GI/Abdominal exam: Present: normal bowel sounds - Extremities Exam Extremities exam: Present: normal inspection - Back Exam Back exam: Present: normal inspection - Neurological Exam Neurological exam: Present: alert, oriented X3 - Psychiatric Psychiatric exam: Present: normal affect, normal mood - Skin Skin exam: Present: normal color, warm, dry Discharge Results Labs on day of discharge: Labs from last 24 hours 07/09/16 07/09/16 02:24 02:24 WBC 14.5 H RBC 4.55 Hgb 12.3 L Hct 35.3 L MCV 77.6 L MCH 27 MCHC 34.8 RDW 13.4 Plt Count 285 MPV 11.3 Neut % (Auto) 72.1 Lymph % (Auto) 13.9 L Roberts % (Auto) 12.7 Eos % (Auto) 0.7 Baso % (Auto) 0.2 Neut # (Auto) 10.5 H Lymph # (Auto) 2.0 Roberts # (Auto) 1.8 H Eos # (Auto) 0.1 Baso # (Auto) 0.0 Immature Gran % 0.4 Nucleated RBC % 0.0 Immature Gran # 0.06 Nucleated RBCs # 0.00 Sodium 142 Potassium 3.7 Chloride 105 Carbon Dioxide 24 Anion Gap 16.7 H BUN 22 H Creatinine 1.40 H GFR Calculation 84 BUN/Creatinine Ratio 15.00 Glucose 91 Calculated Osmolality 285.1 Calcium 8.9 - Imaging and Cardiology Cardiology Procedure: image reviewed by me, report reviewed by me DS: Provider Date of admission: 07/06/16 10:21 Primary care physician: Migel Rossi MD Attending physician on admission: Dasia Monteiro DO Discharging clinician: Dasia Monteiro DO Expected date of discharge: 07/09/16
[2016-07-09] MEDS: ASPIRIN EC 81 MG TABLET PO SCH (08:38)
[2016-07-09] MEDS: TICAGRELOR 90 MG TABLET PO SCH (08:38)
[2016-07-09] MEDS: CARVEDILOL 3.125 MG TABLET PO SCH (08:38)
[2016-07-09] MEDS: NICOTINE 21 MG/24 HR PATCH TRANSDERM SCH (08:38)
[2016-07-09] MEDS: SPIRONOLACTONE 25 MG TABLET PO SCH (08:38)
[2016-07-09] MEDS: FUROSEMIDE 40 MG TABLET PO SCH (08:38)
[2016-07-09] MEDS: PANTOPRAZOLE 40 MG TABLET PO SCH (08:39)
[2016-07-09] MEDS: LISINOPRIL 2.5 MG TABLET PO SCH (08:39)
--- NOTE | 2016-07-09 08:48 | EKG Report ---
Stationary ECG Study [facility] Test Date: 07/09/2016 8:46:56 AM Pat Name: AUDREY RICKS Department: Room: 269 Gender: M Clinical Services Professional: GAYLE : 1960 Requested by: Deb Love Order Number: [id number] MD: TAMMI ROSAS Intervals [place] Rate: 68 P: -13 [place]: 137 QRS: 9 QRSD: 100 T: 50 QT: 397 QTc: 415 Interpretive Statements SINUS RHYTHM LEFT ATRIAL ABNORMALITY ANTEROSEPTAL MYOCARDIAL INFARCTION, PREVIOUSLY CITED Electronically Signed On 07-09-16 11:35:22 SOCK IRONER by TAMMI ROSAS [email or web address]
[2016-07-09] MEDS ORDERED: AMIODARONE 200 MG TABLET PO SCH (09:00)
== END 2016-07-09 11:49 | disposition home or self-care (01) | DRG 247 ==
LOC: N.ED 05:22 → N.CL 06:07 → N.CC 10:20 → N.TELES 07-07 16:09
PROVIDERS: ADMIT Internal Medicine Cardiovascular Disease; ATTEND Internal Medicine Cardiovascular Disease
PROC: CLCCHCL (ICD-10-PCS; 2016-07-06 06:30)

== ENCOUNTER 2017-07-18 04:54 | Inpatient (IN) ==
[2017-07-18] MEDS ORDERED: DILTIAZEM 50 MG/10 ML VIAL IV STA (05:16)
[2017-07-18] MEDS ORDERED: MORPHINE 2 MG/1 ML SYRINGE IV STA (05:16)
[2017-07-18] MEDS ORDERED: ASPIRIN 325 MG TABLET PO STA ×2 (05:16→08:42)
[2017-07-18] MEDS ORDERED: NITROGLYCERIN 2% OINT 1 INCH/GM PACK TOP STA (05:16)
[2017-07-18] MEDS ORDERED: PANTOPRAZOLE 40 MG VIAL IV STA (05:16)
[2017-07-18] MEDS ORDERED: ONDANSETRON 4 MG/2 ML VIAL IV STA (05:16)
[2017-07-18] MEDS ORDERED: ALUM/MAG/SIMETH/LIDO VISC 1:1 30 ML BOTTLE PO STA (05:16)
[2017-07-18] MEDS ORDERED: DILTIAZEM 50 MG/10 ML VIAL IV ONE (05:17)
[2017-07-18] MEDS ORDERED: ALUM/MAG/SIMETH/LIDO VISC 1:1 30 ML BOTTLE PO ONE (05:17)
[2017-07-18] MEDS ORDERED: ASPIRIN 325 MG TABLET ONE (05:17)
[2017-07-18] MEDS ORDERED: NITROGLYCERIN 2% OINT 1 INCH/GM PACK TOP ONE (05:17)
[2017-07-18 05:25] LABS: Basophils % 0.4 % (0.0-0.8); Eosinophils # 0.1 10*3/uL (0.0-0.87); Hematocrit 32.1 VOL% (42.0-52.0); Hemoglobin 11.1 GM/DL (14.0-18.0); Immature Granulocytes % 0.3 %; Immature Granulocytes Absolute 0.03 #; Lymphocytes # 2.6 10*3/uL (1.4-4.0); Mean Corpuscular HGB Conc 34.6 GM/DL (32-36); Mean Corpuscular Hemoglobin 27 PG (27-34); Mean Corpuscular Volume 77.2 FL (87-102); Mean Platelet Volume 10.6 FL (9.6-12.0); Monocytes # 0.7 10*3/uL (0.11-0.8); Monocytes % 6.7 % (1.7-12.7); Neutrophils # 6.5 10*3/uL (1.4-7.4); Neutrophils % 65.6 % (38.7-73.9); Platelet Count 309 T/CUMM (130-400); Red Blood Count 4.16 MC/CUMM (3.8-5.5); Red Cell Distribution Width 14.1 % (9.3-17.3)
[2017-07-18] MEDS ORDERED: ONDANSETRON 4 MG/2 ML VIAL ONE (05:30)
[2017-07-18] MEDS ORDERED: DILTIAZEM 100 MG VIAL.ADD IV ONE (05:30)
[2017-07-18] MEDS ORDERED: PANTOPRAZOLE 40 MG VIAL IV ONE (05:30)
[2017-07-18] MEDS ORDERED: MORPHINE 10 MG/1 ML VIAL ONE (05:32)
[2017-07-18 05:36] LABS: PT Patient Result 10.8 SECS
[2017-07-18] MEDS: DILTIAZEM INJ 100 MG in SODIUM CHLORIDE 0.9% 100 ML IV SCH (05:42)
[2017-07-18 05:48] LABS: Alanine Aminotransferase 20 U/L (16-61); Albumin 3.9 G/DL (3.4-5.0); Alkaline Phosphatase 51 U/L (45-117); Aspartate Amino Transferase 19 U/L (0-37); Blood Urea Nitrogen 21 MG/DL (7-18); Calcium 8.7 MG/DL (8.5-10.1); Glucose 113 MG/DL (74-106); Magnesium 2.2 MG/DL (1.8-2.4); Potassium 3.6 MMOL/L (3.5-5.1); Sodium 136 MMOL/L (136-145); Total Protein 7.9 G/DL (6.4-8.3); Troponin I Only < 0.015 NG/ML (0.00-0.045)
[2017-07-18] MEDS ORDERED: POTASSIUM CHLORIDE 20 MEQ TABLET PO PRN (06:17)
[2017-07-18] MEDS ORDERED: MAGNESIUM SULF RIDER 2 GM in PREMIX 1 EACH IV PRN ×2 (06:17→16:11)
[2017-07-18] MEDS ORDERED: MORPHINE 2 MG/1 ML SYRINGE IV PRN (06:17)
[2017-07-18] MEDS ORDERED: MAGNESIUM SULF RIDER 4 GM in PREMIX 1 EACH IV PRN (06:17)
[2017-07-18] MEDS ORDERED: ONDANSETRON 4 MG/2 ML VIAL IV PRN (06:17)
[2017-07-18] MEDS: SODIUM CHLORIDE 0.9% 1,000 ML IV SCH (06:35)
[2017-07-18] MEDS ORDERED: CARVEDILOL 3.125 MG TABLET ONE (08:56)
[2017-07-18] MEDS ORDERED: ENOXAPARIN 100 MG/ML SYRINGE SUBCUT STA (08:56)
[2017-07-18] MEDS ORDERED: TICAGRELOR 90 MG TABLET ONE (08:56)
[2017-07-18] MEDS ORDERED: PANTOPRAZOLE 40 MG TABLET PO ONE (08:57)
[2017-07-18] MEDS ORDERED: CARVEDILOL 3.125 MG TABLET PO SCH (09:00)
[2017-07-18] MEDS ORDERED: ASPIRIN EC 325 MG TABLET PO SCH (09:00)
[2017-07-18] MEDS ORDERED: TICAGRELOR 90 MG TABLET PO SCH (09:00)
[2017-07-18] MEDS ORDERED: ENOXAPARIN 100 MG/ML SYRINGE SUBCUT ONE (09:07)
[2017-07-18] MEDS: ASPIRIN EC 81 MG TABLET PO SCH (09:14)
[2017-07-18] MEDS: PANTOPRAZOLE 40 MG TABLET PO SCH (09:15)
[2017-07-18 09:54] LABS: Apearance,Urine CLEAR (Clear); Bilirubin,Urine Negative (Negative); Blood, Urine Negative (Negative); Glucose,Urine (UA) Negative (Negative); Ketones,Urine Negative (Negative); Nitrite,Urine Negative (Negative); Protein,Urine Negative; RBC,Urine <1 /HPF (0-4); Urine Color Yellow (Yellow); Urine Specific Gravity 1.013 (1.001-1.035); Urine Urobilinogen < 2.0 EU/DL (0.2-1.0)
[2017-07-18 10:06] LABS: Barbiturates Screen,Urine Negative (Negative); Benzodiazepines Screen,Urine Negative (Negative); Cannabinoid Screen,Urine Negative (Negative); Opiate Screen,Urine Positive (Negative); Phencyclidine Screen,Urine Negative (Negative)
[2017-07-18] MEDS ORDERED: MORPHINE 10 MG/1 ML VIAL IV PRN ×2 (11:30→17:25)
[2017-07-18] MEDS: NITROGLYCERIN 2% OINT 1 INCH/GM PACK TOP SCH ×2 (13:27→14:01)
[2017-07-18] MEDS ORDERED: DIAZEPAM 5 MG TABLET PO ONE (16:11)
[2017-07-18] MEDS ORDERED: POTASSIUM CHLORIDE RIDER 10 MEQ in PREMIX 1 EACH IV PRN (16:11)
[2017-07-18] MEDS ORDERED: diphenhydrAMINE CAP 25 MG CAPSULE PO ONE (16:11)
[2017-07-18] MEDS ORDERED: LIDOCAINE 1% 20 ML VIAL ONE (16:25)
[2017-07-18] MEDS ORDERED: HEPARIN/NACL 0.9% 2 UNITS/ML 2,000 ML IV ONE (16:25)
[2017-07-18] MEDS ORDERED: NITROGLYCERIN DRIP 50 MG/250 ML BOTTLE IV ONE (16:26)
[2017-07-18] MEDS ORDERED: VERAPAMIL 5 MG/2 ML VIAL ONE (16:27)
[2017-07-18] MEDS ORDERED: SODIUM CHLORIDE 0.9% 1,000 ML IV SCH (16:30)
[2017-07-18] MEDS ORDERED: ENOXAPARIN 60 MG/0.6 ML SYRINGE ONE (17:04)
[2017-07-18 17:10] LABS: ABG Base Excess -0.8 MMOL/L (-2.5-2.5); ABG HCO3 23.7 MMOL/L (20-26); ABG Oxygen Saturation 94.4 % (95-100); ABG PCO2 37.3 MM HG (35-48); ABG PH 7.408 (7.35-7.45); ABG PO2 76.7 MM HG (80-95); ABG TCO2 20.9 MMOL/L (23-27); Allen Test Positive
[2017-07-18] MEDS ORDERED: ACETAMINOPHEN 325 MG TABLET PO PRN (17:25)
[2017-07-18] MEDS ORDERED: POTASSIUM CHLORIDE 20 MEQ TABLET PO ONE (17:25)
[2017-07-18] MEDS ORDERED: FUROSEMIDE 40 MG/4 ML VIAL IV ONE (17:27)
[2017-07-18] MEDS: ENOXAPARIN 100 MG/ML SYRINGE SUBCUT SCH (20:42)
[2017-07-18] MEDS: CARVEDILOL 6.25 MG TABLET PO SCH (20:42)
[2017-07-18] MEDS: ALBUTEROL/IPRATROPIUM 3 ML NEB RESP TX SCH (20:45)
[2017-07-19] MEDS: ALBUTEROL/IPRATROPIUM 3 ML NEB RESP TX SCH ×4 (00:04→19:24)
[2017-07-19] MEDS: SODIUM CHLORIDE 0.9% 1,000 ML IV SCH (02:51)
[2017-07-19] MEDS: DILTIAZEM INJ 100 MG in SODIUM CHLORIDE 0.9% 100 ML IV SCH ×2 (04:52→19:08)
[2017-07-19 06:25] LABS: Basophils # 0.1 10*3/uL (0.0-0.2); Basophils % 0.7 % (0.0-0.8); Eosinophils % 0.4 % (0.00-10.9); Hematocrit 32.7 VOL% (42.0-52.0); Hemoglobin 11.5 GM/DL (14.0-18.0); Immature Granulocytes % 0.3 %; Immature Granulocytes Absolute 0.02 #; Lymphocytes # 1.9 10*3/uL (1.4-4.0); Lymphocytes % 25.6 % (21.2-54.2); Mean Corpuscular HGB Conc 35.2 GM/DL (32-36); Mean Corpuscular Hemoglobin 27 PG (27-34); Mean Corpuscular Volume 75.7 FL (87-102); Mean Platelet Volume 10.4 FL (9.6-12.0); Monocytes # 0.7 10*3/uL (0.11-0.8); Monocytes % 9.5 % (1.7-12.7); Neutrophils # 4.7 10*3/uL (1.4-7.4); Neutrophils % 63.5 % (38.7-73.9); Platelet Count 304 T/CUMM (130-400); Red Blood Count 4.32 MC/CUMM (3.8-5.5); Red Cell Distribution Width 13.8 % (9.3-17.3); White Blood Count 7.3 T/CUMM (4-12)
[2017-07-19 06:45] LABS: Albumin 3.5 G/DL (3.4-5.0); Bilirubin,Total 1.4 MG/DL (0.2-1.0); Calcium 8.5 MG/DL (8.5-10.1); Magnesium 2.2 MG/DL (1.8-2.4); Osmolality,Calculated 280.3 MOS/KG (273-304); Potassium 4.4 MMOL/L (3.5-5.1); Risk Ratio 4.95; Thyroid Stimulating Hormone 4.14 uIU/ml (0.358-3.74); Total Protein 7.6 G/DL (6.4-8.3); VLDL CHOLESTEROL 20.4 MG/DL
[2017-07-19] MEDS ORDERED: NITROGLYCERIN SL 0.4 MG TABLET SL PRN (07:29)
[2017-07-19] MEDS ORDERED: FUROSEMIDE 40 MG/4 ML VIAL IV ONE (08:00)
[2017-07-19] MEDS ORDERED: FUROSEMIDE 40 MG TABLET PO SCH (09:00)
[2017-07-19] MEDS ORDERED: LISINOPRIL 2.5 MG TABLET PO SCH (09:00)
[2017-07-19] MEDS: CARVEDILOL 6.25 MG TABLET PO SCH (09:36)
[2017-07-19] MEDS: ASPIRIN EC 81 MG TABLET PO SCH (09:36)
[2017-07-19] MEDS: PANTOPRAZOLE 40 MG TABLET PO SCH (09:36)
[2017-07-19] MEDS: ENOXAPARIN 100 MG/ML SYRINGE SUBCUT SCH (09:37)
[2017-07-19] MEDS ORDERED: CARVEDILOL 12.5 MG TABLET PO SCH (09:56)
[2017-07-19] MEDS: FUROSEMIDE 80 MG TABLET PO SCH (16:34)
[2017-07-19] MEDS: APIXABAN 5 MG TABLET PO SCH (21:16)
[2017-07-20] MEDS: ALBUTEROL/IPRATROPIUM 3 ML NEB RESP TX SCH ×4 (00:10→20:05)
[2017-07-20 04:58] LABS: Basophils # 0.1 10*3/uL (0.0-0.2); Basophils % 0.7 % (0.0-0.8); Eosinophils # 0.1 10*3/uL (0.0-0.87); Eosinophils % 1.2 % (0.00-10.9); Hematocrit 36.1 VOL% (42.0-52.0); Hemoglobin 12.8 GM/DL (14.0-18.0); Immature Granulocytes % 0.1 %; Immature Granulocytes Absolute 0.01 #; Lymphocytes # 2.1 10*3/uL (1.4-4.0); Lymphocytes % 28.2 % (21.2-54.2); Mean Corpuscular HGB Conc 35.5 GM/DL (32-36); Mean Corpuscular Hemoglobin 27 PG (27-34); Mean Corpuscular Volume 75.1 FL (87-102); Mean Platelet Volume 10.8 FL (9.6-12.0); Monocytes # 0.8 10*3/uL (0.11-0.8); Monocytes % 10.3 % (1.7-12.7); Neutrophils # 4.4 10*3/uL (1.4-7.4); Neutrophils % 59.5 % (38.7-73.9); Platelet Count 313 T/CUMM (130-400); Red Blood Count 4.81 MC/CUMM (3.8-5.5); Red Cell Distribution Width 13.8 % (9.3-17.3); White Blood Count 7.4 T/CUMM (4-12)
[2017-07-20 05:29] LABS: Calcium 9.2 MG/DL (8.5-10.1); Magnesium 2.4 MG/DL (1.8-2.4); Osmolality,Calculated 278.7 MOS/KG (273-304); Potassium 4.1 MMOL/L (3.5-5.1)
[2017-07-20] MEDS: DILTIAZEM INJ 100 MG in SODIUM CHLORIDE 0.9% 100 ML IV SCH (06:18)
[2017-07-20] MEDS: ASPIRIN EC 81 MG TABLET PO SCH (08:43)
[2017-07-20] MEDS: PANTOPRAZOLE 40 MG TABLET PO SCH (08:43)
[2017-07-20] MEDS: FUROSEMIDE 80 MG TABLET PO SCH ×2 (08:43→18:10)
[2017-07-20] MEDS: APIXABAN 5 MG TABLET PO SCH ×2 (08:43→20:54)
[2017-07-20] MEDS: CARVEDILOL 25 MG TABLET PO SCH ×2 (08:43→20:54)
[2017-07-21] MEDS: ALBUTEROL/IPRATROPIUM 3 ML NEB RESP TX SCH ×4 (00:18→20:15)
[2017-07-21 05:21] LABS: Basophils # 0.1 10*3/uL (0.0-0.2); Basophils % 0.6 % (0.0-0.8); Eosinophils # 0.2 10*3/uL (0.0-0.87); Eosinophils % 1.7 % (0.00-10.9); Hematocrit 32.7 VOL% (42.0-52.0); Hemoglobin 11.7 GM/DL (14.0-18.0); Immature Granulocytes % 0.3 %; Immature Granulocytes Absolute 0.03 #; Lymphocytes # 2.1 10*3/uL (1.4-4.0); Lymphocytes % 23.7 % (21.2-54.2); Mean Corpuscular HGB Conc 35.8 GM/DL (32-36); Mean Corpuscular Hemoglobin 27 PG (27-34); Mean Corpuscular Volume 75.3 FL (87-102); Mean Platelet Volume 10.9 FL (9.6-12.0); Monocytes % 10.9 % (1.7-12.7); Neutrophils # 5.4 10*3/uL (1.4-7.4); Neutrophils % 62.8 % (38.7-73.9); Platelet Count 309 T/CUMM (130-400); Red Blood Count 4.34 MC/CUMM (3.8-5.5); Red Cell Distribution Width 13.7 % (9.3-17.3); White Blood Count 8.7 T/CUMM (4-12)
[2017-07-21 05:50] LABS: Calcium 8.8 MG/DL (8.5-10.1); Magnesium 2.4 MG/DL (1.8-2.4); Potassium 4.1 MMOL/L (3.5-5.1)
[2017-07-21] MEDS: ASPIRIN EC 81 MG TABLET PO SCH (10:42)
[2017-07-21] MEDS: CARVEDILOL 25 MG TABLET PO SCH ×2 (10:42→20:56)
[2017-07-21] MEDS: PANTOPRAZOLE 40 MG TABLET PO SCH (10:42)
[2017-07-21] MEDS: APIXABAN 5 MG TABLET PO SCH ×2 (10:43→20:56)
[2017-07-22] MEDS: ALBUTEROL/IPRATROPIUM 3 ML NEB RESP TX SCH ×2 (01:07→09:00)
[2017-07-22 05:52] LABS: Basophils # 0.1 10*3/uL (0.0-0.2); Basophils % 0.6 % (0.0-0.8); Eosinophils # 0.1 10*3/uL (0.0-0.87); Eosinophils % 1.4 % (0.00-10.9); Hematocrit 31.6 VOL% (42.0-52.0); Hemoglobin 11.1 GM/DL (14.0-18.0); Immature Granulocytes % 0.3 %; Immature Granulocytes Absolute 0.02 #; Lymphocytes # 1.7 10*3/uL (1.4-4.0); Lymphocytes % 21.4 % (21.2-54.2); Mean Corpuscular HGB Conc 35.1 GM/DL (32-36); Mean Corpuscular Hemoglobin 27 PG (27-34); Mean Corpuscular Volume 77.3 FL (87-102); Mean Platelet Volume 10.9 FL (9.6-12.0); Monocytes # 0.8 10*3/uL (0.11-0.8); Monocytes % 9.8 % (1.7-12.7); Neutrophils # 5.2 10*3/uL (1.4-7.4); Neutrophils % 66.5 % (38.7-73.9); Platelet Count 313 T/CUMM (130-400); Red Blood Count 4.09 MC/CUMM (3.8-5.5); Red Cell Distribution Width 13.4 % (9.3-17.3); White Blood Count 7.9 T/CUMM (4-12)
[2017-07-22 06:22] LABS: Calcium 8.9 MG/DL (8.5-10.1); Magnesium 2.5 MG/DL (1.8-2.4); Osmolality,Calculated 275.2 MOS/KG (273-304); Potassium 4.3 MMOL/L (3.5-5.1)
[2017-07-22] MEDS ORDERED: AMIODARONE 200 MG TABLET PO SCH (09:00)
[2017-07-22] MEDS ORDERED: ASCORBIC ACID 500 MG TABLET PO SCH (09:00)
[2017-07-22] MEDS: PANTOPRAZOLE 40 MG TABLET PO SCH (10:05)
[2017-07-22] MEDS: ASPIRIN EC 81 MG TABLET PO SCH (10:05)
[2017-07-22] MEDS: APIXABAN 5 MG TABLET PO SCH (10:06)
[2017-07-22] MEDS: CARVEDILOL 25 MG TABLET PO SCH (10:06)
[2017-07-22 14:09] VITALS: BP 134/89
== END 2017-07-22 10:57 | disposition home or self-care (01) | DRG 286 ==
LOC: N.ED 04:54 → N.EDINP 05:54 → N.TELES 13:00 → N.ICU 17:42 → N.TELEN 07-20 14:16
PROVIDERS: ADMIT Internal Medicine Cardiovascular Disease; ATTEND Internal Medicine Cardiovascular Disease
PROC: CLCCHCL (ICD-10-PCS; 2017-07-18 17:15)

== ENCOUNTER 2021-03-26 17:27 | Observation (INO) ==
[2021-03-26] MEDS ORDERED: ASPIRIN 325 MG TABLET ONE (17:39)
[2021-03-26] MEDS ORDERED: TICAGRELOR 90 MG TABLET PO STA (17:40)
[2021-03-26] MEDS ORDERED: ASPIRIN 325 MG TABLET PO STA (18:00)
[2021-03-26 18:01] LABS: Basophils # 0.1 10*3/uL (0.0-0.2); Basophils % 0.6 % (0.0-0.8); Eosinophils # 0.1 10*3/uL (0.0-0.87); Eosinophils % 1.3 % (0.00-10.9); Hematocrit 34.8 VOL% (42.0-52.0); Hemoglobin 11.8 GM/DL (14.0-18.0); Immature Granulocytes % 0.3 %; Immature Granulocytes Absolute 0.02 #; Lymphocytes # 1.4 10*3/uL (1.4-4.0); Lymphocytes % 17.4 % (21.2-54.2); Mean Corpuscular HGB Conc 33.9 GM/DL (32-36); Mean Corpuscular Volume 77.3 FL (87-102); Mean Platelet Volume 9.8 FL (9.6-12.0); Monocytes % 9.7 % (1.7-12.7); Neutrophils % 70.7 % (38.7-73.9); Platelet Count 410 T/CUMM (130-400); Red Cell Distribution Width 14.5 % (9.3-17.3); White Blood Count 7.9 T/CUMM (4-12)
[2021-03-26 18:19] LABS: INR 1.1; PT Patient Result 12.6 SECS (10.5-12.0); Partial Thromboplastin Time 25.7 SECS (23.9-33.8)
[2021-03-26 18:21] LABS: Albumin 3.7 G/DL (3.4-5.0); Bilirubin,Total 0.8 MG/DL (0.20-1.00); Total Protein 8.6 G/DL (6.4-8.2)
[2021-03-26] MEDS ORDERED: ONDANSETRON 4 MG/2 ML VIAL ONE (18:25)
[2021-03-26] MEDS ORDERED: ONDANSETRON 4 MG/2 ML VIAL IV ONE (18:25)
[2021-03-26] MEDS ORDERED: MORPHINE 2 MG/1 ML SYRINGE IV STA (18:25)
[2021-03-26] MEDS ORDERED: MORPHINE 2 MG/1 ML SYRINGE ONE (18:26)
[2021-03-26] MEDS ORDERED: MIDAZOLAM 2 MG/2 ML VIAL ONE (18:36)
[2021-03-26] MEDS ORDERED: fentaNYL 100 MCG/2 ML VIAL ONE (18:36)
[2021-03-26] MEDS ORDERED: LIDOCAINE 1%/EPI INJ 20 ML VIAL ONE (18:36)
[2021-03-26] MEDS ORDERED: HEPARIN/NACL 0.9% 2 UNITS/ML 2,000 UNIT/1,000 ML BAG IV ONE (18:36)
[2021-03-26] MEDS ORDERED: NITROGLYCERIN SL 0.4 MG TABLET SL PRN (19:27)
[2021-03-26] MEDS ORDERED: guaiFENesin/DM ER 600-30 MG TABLET PO PRN (20:15)
[2021-03-26] MEDS ORDERED: hydrALAZINE 20 MG/1 ML VIAL IV PRN (20:15)
[2021-03-26] MEDS ORDERED: MAGNESIUM SULF RIDER 2 GM/50 ML PREMIX IV PRN (20:15)
[2021-03-26] MEDS ORDERED: MAGNESIUM SULF RIDER 4 GM/100 ML PREMIX IV PRN (20:15)
[2021-03-26] MEDS ORDERED: ACETAMINOPHEN 325 MG TABLET PO PRN (20:15)
[2021-03-26] MEDS ORDERED: ZALEPLON 5 MG CAPSULE PO PRN (20:15)
[2021-03-26] MEDS: TICAGRELOR 90 MG TABLET PO SCH (21:26)
[2021-03-26] MEDS: SACUBITRIL/VALSARTAN 49-51 MG TABLET PO SCH (21:26)
[2021-03-26] MEDS: carvediloL 25 MG TABLET PO SCH (21:26)
[2021-03-26] MEDS: ROSUVASTATIN 20 MG TABLET PO SCH (21:26)
[2021-03-27 05:01] LABS: Basophils % 0.3 % (0.0-0.8); Eosinophils # 0.1 10*3/uL (0.0-0.87); Eosinophils % 1.5 % (0.00-10.9); Hematocrit 32.9 VOL% (42.0-52.0); Hemoglobin 11.1 GM/DL (14.0-18.0); Immature Granulocytes % 0.3 %; Immature Granulocytes Absolute 0.03 #; Lymphocytes # 1.4 10*3/uL (1.4-4.0); Lymphocytes % 16.3 % (21.2-54.2); Mean Corpuscular HGB Conc 33.7 GM/DL (32-36); Mean Corpuscular Volume 77.4 FL (87-102); Mean Platelet Volume 9.7 FL (9.6-12.0); Monocytes % 11.1 % (1.7-12.7); Neutrophils % 70.5 % (38.7-73.9); Platelet Count 343 T/CUMM (130-400); Red Blood Count 4.25 MC/CUMM (3.8-5.5); Red Cell Distribution Width 14.4 % (9.3-17.3); White Blood Count 8.7 T/CUMM (4-12)
[2021-03-27 05:22] LABS: Calcium 8.1 MG/DL (8.5-10.1); Osmolality,Calculated 277.4 MOS/KG (273-304)
[2021-03-27] MEDS: SACUBITRIL/VALSARTAN 49-51 MG TABLET PO SCH ×2 (09:15→21:13)
[2021-03-27] MEDS: TICAGRELOR 90 MG TABLET PO SCH ×2 (09:15→21:13)
[2021-03-27] MEDS: PANTOPRAZOLE 40 MG TABLET PO SCH (09:15)
[2021-03-27] MEDS: ASPIRIN CHEW 81 MG TABLET PO SCH (09:15)
[2021-03-27] MEDS: carvediloL 25 MG TABLET PO SCH ×2 (09:15→21:13)
[2021-03-27] MEDS: FUROSEMIDE 40 MG TABLET PO SCH (09:15)
[2021-03-27] MEDS: ROSUVASTATIN 20 MG TABLET PO SCH (21:13)
[2021-03-28 08:08] LABS: Basophils % 0.4 % (0.0-0.8); Eosinophils # 0.1 10*3/uL (0.0-0.87); Eosinophils % 1.6 % (0.00-10.9); Hematocrit 36.4 VOL% (42.0-52.0); Hemoglobin 12.5 GM/DL (14.0-18.0); Immature Granulocytes % 0.2 %; Immature Granulocytes Absolute 0.02 #; Lymphocytes % 11.3 % (21.2-54.2); Mean Corpuscular HGB Conc 34.3 GM/DL (32-36); Mean Corpuscular Volume 76.6 FL (87-102); Monocytes % 10.3 % (1.7-12.7); Neutrophils % 76.2 % (38.7-73.9); Platelet Count 381 T/CUMM (130-400); Red Blood Count 4.75 MC/CUMM (3.8-5.5); Red Cell Distribution Width 14.2 % (9.3-17.3)
[2021-03-28 08:28] LABS: Calcium 8.9 MG/DL (8.5-10.1); Osmolality,Calculated 276.5 MOS/KG (273-304); Potassium 4.1 MMOL/L (3.5-5.1)
[2021-03-28] MEDS: SACUBITRIL/VALSARTAN 49-51 MG TABLET PO SCH (09:39)
[2021-03-28] MEDS: TICAGRELOR 90 MG TABLET PO SCH (09:40)
[2021-03-28] MEDS: carvediloL 25 MG TABLET PO SCH (09:40)
[2021-03-28] MEDS: PANTOPRAZOLE 40 MG TABLET PO SCH (09:40)
[2021-03-28] MEDS: FUROSEMIDE 40 MG TABLET PO SCH (09:40)
[2021-03-28] MEDS: ASPIRIN CHEW 81 MG TABLET PO SCH (09:40)
[2021-03-28] MEDS ORDERED: APIXABAN 5 MG TABLET PO SCH (11:44)
[2021-03-28 12:18] VITALS: BP 113/77
== END 2021-03-28 13:00 | disposition home or self-care (01) ==
LOC: N.ED 17:27 → N.TELES 17:27
PROVIDERS: ADMIT Internal Medicine Interventional Cardiology; ATTEND Internal Medicine Interventional Cardiology
PROC: CLCCHCL (ICD-10-PCS; 2021-03-26 17:00)

== ENCOUNTER 2022-07-17 11:19 | Inpatient (IN) ==
[2022-07-17] MEDS ORDERED: ASPIRIN 325 MG TABLET PO STA (11:47)
[2022-07-17] MEDS ORDERED: FUROSEMIDE 40 MG/4 ML VIAL IV STA (11:47)
[2022-07-17] MEDS ORDERED: DILTIAZEM 25 MG/5 ML VIAL IV STA (11:56)
[2022-07-17 12:05] LABS: Basophils # 0.1 10*3/uL (0.0-0.2); Eosinophils % 0.6 % (0.00-10.9); Hematocrit 34.7 VOL% (42.0-52.0); Hemoglobin 11.4 GM/DL (14.0-18.0); Immature Granulocytes % 0.4 %; Immature Granulocytes Absolute 0.02 #; Lymphocytes # 1.2 10*3/uL (1.4-4.0); Lymphocytes % 24.5 % (21.2-54.2); Mean Corpuscular HGB Conc 32.9 GM/DL (32-36); Mean Corpuscular Volume 73.7 FL (87-102); Mean Platelet Volume 9.2 FL (9.6-12.0); Monocytes # 0.5 10*3/uL (0.11-0.8); Monocytes % 9.8 % (1.7-12.7); Neutrophils % 63.7 % (38.7-73.9); Platelet Count 473 T/CUMM (130-400); Red Blood Count 4.71 MC/CUMM (3.8-5.5); Red Cell Distribution Width 15.9 % (9.3-17.3); White Blood Count 4.8 T/CUMM (4-12)
[2022-07-17 12:50] LABS: INR 1.2; PT Patient Result 12.7 SECS (10.1-12.1)
[2022-07-17 13:48] LABS: Albumin 3.7 G/DL (3.4-5.0); Bilirubin,Total 1.2 MG/DL (0.20-1.00); Osmolality,Calculated 277.7 MOS/KG (273-304); Potassium 3.5 MMOL/L (3.5-5.1); Total Protein 8.1 G/DL (6.4-8.2)
[2022-07-17] MEDS ORDERED: AZITHROMYCIN INJ 500 MG in SODIUM CHLORIDE 0.9% 250 ML IV STA (14:56)
[2022-07-17] MEDS ORDERED: cefTRIAXone 1,000 MG in SODIUM CHLORIDE 0.9% 100 ML IV STA (14:56)
[2022-07-17] MEDS ORDERED: ACETAMINOPHEN 325 MG TABLET PO PRN (15:38)
[2022-07-17] MEDS ORDERED: ONDANSETRON 4 MG/2 ML VIAL IV PRN (15:38)
[2022-07-17] MEDS ORDERED: DOCUSATE SODIUM 100 MG CAPSULE PO PRN (15:38)
[2022-07-17] MEDS ORDERED: NITROGLYCERIN SL 0.4 MG TABLET SL PRN (15:41)
[2022-07-17] MEDS ORDERED: AZITHROMYCIN INJ 500 MG in SODIUM CHLORIDE 0.9% 250 ML IV SCH (16:00)
[2022-07-17] MEDS: carvediloL 25 MG TABLET PO SCH (17:40)
[2022-07-17] MEDS: AMIODARONE 200 MG TABLET PO SCH (17:40)
[2022-07-17] MEDS: FUROSEMIDE 40 MG/4 ML VIAL IV SCH (17:41)
[2022-07-17] MEDS: DOXYCYCLINE HYCLATE INJ 100 MG in SODIUM CHLORIDE 0.9% 100 ML IV SCH (17:47)
[2022-07-17] MEDS ORDERED: APIXABAN 5 MG TABLET PO SCH (21:00)
[2022-07-17] MEDS: ROSUVASTATIN 20 MG TABLET PO SCH (22:39)
[2022-07-17] MEDS: SACUBITRIL/VALSARTAN 49-51 MG TABLET PO SCH (22:40)
[2022-07-18 04:43] LABS: Basophils # 0.1 10*3/uL (0.0-0.2); Basophils % 0.9 % (0.0-0.8); Eosinophils # 0.1 10*3/uL (0.0-0.87); Eosinophils % 1.9 % (0.00-10.9); Hemoglobin 11.4 GM/DL (14.0-18.0); Immature Granulocytes % 0.2 %; Immature Granulocytes Absolute 0.01 #; Lymphocytes # 1.4 10*3/uL (1.4-4.0); Lymphocytes % 21.3 % (21.2-54.2); Mean Corpuscular HGB Conc 32.6 GM/DL (32-36); Mean Corpuscular Volume 75.1 FL (87-102); Mean Platelet Volume 9.7 FL (9.6-12.0); Monocytes # 0.6 10*3/uL (0.11-0.8); Monocytes % 9.3 % (1.7-12.7); Neutrophils % 66.4 % (38.7-73.9); Platelet Count 460 T/CUMM (130-400); Red Blood Count 4.66 MC/CUMM (3.8-5.5); Red Cell Distribution Width 15.9 % (9.3-17.3); White Blood Count 6.4 T/CUMM (4-12)
[2022-07-18] MEDS: DOXYCYCLINE HYCLATE INJ 100 MG in SODIUM CHLORIDE 0.9% 100 ML IV SCH (05:03)
[2022-07-18] MEDS: FUROSEMIDE 40 MG/4 ML VIAL IV SCH ×2 (05:03→17:15)
[2022-07-18 05:16] LABS: Calcium 9.1 MG/DL (8.5-10.1); Osmolality,Calculated 282.1 MOS/KG (273-304); Potassium 4.3 MMOL/L (3.5-5.1)
[2022-07-18 05:18] LABS: Risk Ratio 4.33; VLDL Cholesterol 13.6 MG/DL
[2022-07-18] MEDS ORDERED: MAGNESIUM SULF RIDER 2 GM/50 ML PREMIX IV STA (08:54)
[2022-07-18] MEDS ORDERED: ASCORBIC ACID 500 MG TABLET PO SCH (09:00)
[2022-07-18] MEDS: carvediloL 25 MG TABLET PO SCH ×2 (09:08→17:15)
[2022-07-18] MEDS: AMIODARONE 200 MG TABLET PO SCH (09:09)
[2022-07-18] MEDS: SACUBITRIL/VALSARTAN 49-51 MG TABLET PO SCH ×2 (09:21→21:28)
[2022-07-18] MEDS: CLOPIDOGREL 75 MG TABLET PO SCH (09:21)
[2022-07-18] MEDS: PANTOPRAZOLE 40 MG TABLET PO SCH (09:22)
[2022-07-18] MEDS: APIXABAN 5 MG TABLET PO SCH ×2 (09:22→21:26)
[2022-07-18] MEDS: SPIRONOLACTONE 25 MG TABLET PO SCH (09:22)
[2022-07-18] MEDS: ASCORBIC ACID 500 MG TABLET PO SCH ×2 (09:23→21:26)
[2022-07-18] MEDS: LEVALBUTEROL 0.63 MG/3 ML NEB RESP TX SCH ×3 (09:40→20:35)
[2022-07-18] MEDS ORDERED: SODIUM CHLORIDE 0.9% 500 ML IV STA (14:09)
[2022-07-18] MEDS ORDERED: cefTRIAXone 1,000 MG in SODIUM CHLORIDE 0.9% 100 ML IV SCH (15:00)
[2022-07-18] MEDS: CHOLECALCIFEROL 5,000 UNIT TABLET PO SCH (21:26)
[2022-07-18] MEDS: ROSUVASTATIN 20 MG TABLET PO SCH (21:26)
[2022-07-19] MEDS: LEVALBUTEROL 0.63 MG/3 ML NEB RESP TX SCH ×4 (00:30→20:07)
[2022-07-19 04:46] LABS: Basophils # 0.1 10*3/uL (0.0-0.2); Eosinophils # 0.3 10*3/uL (0.0-0.87); Eosinophils % 3.6 % (0.00-10.9); Hemoglobin 11.9 GM/DL (14.0-18.0); Immature Granulocytes % 0.3 %; Immature Granulocytes Absolute 0.02 #; Lymphocytes # 1.7 10*3/uL (1.4-4.0); Lymphocytes % 24.5 % (21.2-54.2); Mean Corpuscular HGB Conc 33.1 GM/DL (32-36); Mean Corpuscular Volume 74.2 FL (87-102); Mean Platelet Volume 9.6 FL (9.6-12.0); Monocytes # 0.7 10*3/uL (0.11-0.8); Monocytes % 10.1 % (1.7-12.7); Neutrophils % 60.5 % (38.7-73.9); Platelet Count 474 T/CUMM (130-400); Red Blood Count 4.85 MC/CUMM (3.8-5.5); Red Cell Distribution Width 15.6 % (9.3-17.3)
[2022-07-19 05:04] LABS: Calcium 8.1 MG/DL (8.5-10.1); Osmolality,Calculated 283.1 MOS/KG (273-304); Potassium 3.4 MMOL/L (3.5-5.1)
[2022-07-19] MEDS: FUROSEMIDE 40 MG/4 ML VIAL IV SCH (05:53)
[2022-07-19] MEDS: carvediloL 25 MG TABLET PO SCH (07:51)
[2022-07-19] MEDS ORDERED: POTASSIUM CHLORIDE 20 MEQ TABLET PO ONE (08:52)
[2022-07-19] MEDS ORDERED: ASPIRIN EC 81 MG TABLET PO SCH (09:00)
[2022-07-19] MEDS: SPIRONOLACTONE 25 MG TABLET PO SCH (09:07)
[2022-07-19] MEDS: ASCORBIC ACID 500 MG TABLET PO SCH ×2 (09:07→21:04)
[2022-07-19] MEDS: CHOLECALCIFEROL 5,000 UNIT TABLET PO SCH ×2 (09:07→21:05)
[2022-07-19] MEDS: CLOPIDOGREL 75 MG TABLET PO SCH (09:07)
[2022-07-19] MEDS: APIXABAN 5 MG TABLET PO SCH ×2 (09:07→21:04)
[2022-07-19] MEDS: AMIODARONE 200 MG TABLET PO SCH (09:07)
[2022-07-19] MEDS: PANTOPRAZOLE 40 MG TABLET PO SCH (09:08)
[2022-07-19] MEDS: carvediloL 3.125 MG TABLET PO SCH ×2 (10:32→17:28)
[2022-07-19] MEDS ORDERED: SODIUM CHLORIDE 0.9% 500 ML IV ONE (16:31)
[2022-07-19] MEDS: ROSUVASTATIN 20 MG TABLET PO SCH (21:04)
[2022-07-19] MEDS: SACUBITRIL/VALSARTAN 49-51 MG TABLET PO SCH (21:05)
[2022-07-20] MEDS: LEVALBUTEROL 0.63 MG/3 ML NEB RESP TX SCH ×2 (01:49→07:58)
[2022-07-20 04:46] LABS: Basophils % 0.7 % (0.0-0.8); Eosinophils # 0.1 10*3/uL (0.0-0.87); Eosinophils % 2.3 % (0.00-10.9); Hematocrit 36.8 VOL% (42.0-52.0); Immature Granulocytes % 0.2 %; Immature Granulocytes Absolute 0.01 #; Lymphocytes # 1.1 10*3/uL (1.4-4.0); Lymphocytes % 19.7 % (21.2-54.2); Mean Corpuscular HGB Conc 32.6 GM/DL (32-36); Mean Corpuscular Volume 74.6 FL (87-102); Mean Platelet Volume 9.5 FL (9.6-12.0); Monocytes # 0.5 10*3/uL (0.11-0.8); Monocytes % 8.5 % (1.7-12.7); Neutrophils % 68.6 % (38.7-73.9); Platelet Count 492 T/CUMM (130-400); Red Blood Count 4.93 MC/CUMM (3.8-5.5); Red Cell Distribution Width 15.7 % (9.3-17.3); White Blood Count 5.7 T/CUMM (4-12)
[2022-07-20 05:07] LABS: Calcium 8.7 MG/DL (8.5-10.1); Osmolality,Calculated 288.8 MOS/KG (273-304); Potassium 3.4 MMOL/L (3.5-5.1)
[2022-07-20] MEDS ORDERED: FUROSEMIDE 40 MG TABLET PO SCH (09:00)
[2022-07-20] MEDS: CHOLECALCIFEROL 5,000 UNIT TABLET PO SCH (09:01)
[2022-07-20] MEDS: APIXABAN 5 MG TABLET PO SCH (09:02)
[2022-07-20] MEDS: PANTOPRAZOLE 40 MG TABLET PO SCH (09:02)
[2022-07-20] MEDS: CLOPIDOGREL 75 MG TABLET PO SCH (09:02)
[2022-07-20] MEDS: AMIODARONE 200 MG TABLET PO SCH (09:02)
[2022-07-20] MEDS: carvediloL 3.125 MG TABLET PO SCH (09:02)
[2022-07-20] MEDS: ASCORBIC ACID 500 MG TABLET PO SCH (09:02)
[2022-07-20] MEDS ORDERED: POTASSIUM CHLORIDE 20 MEQ TABLET PO ONE (09:54)
[2022-07-20] MEDS: SACUBITRIL/VALSARTAN 49-51 MG TABLET PO SCH (12:00)
[2022-07-20] MEDS: SPIRONOLACTONE 25 MG TABLET PO SCH (12:00)
[2022-07-20 12:18] VITALS: BP 98/69
[2022-07-21 14:41] LABS: Specimen Source NASAL
== END 2022-07-20 15:06 | disposition home or self-care (01) | DRG 291 ==
LOC: N.ED 11:19 → N.EDINP 15:38 → SUATTDRO 15:38 → N.TELEN 07-18 15:55
PROVIDERS: ADMIT Internal Medicine; ATTEND Internal Medicine